=== PATIENT | female | born 1960 | race Hispanic/Latino ===

== ENCOUNTER 2017-01-23 11:52 | Observation (INO) | payer BC ==
[2017-01-23] MEDS ORDERED: Sodium Chloride 0.9% 1,000 ML IV STA (12:08)
[2017-01-23 12:41] LABS: BASO # 0.1 K/uL (0.0-0.2); BASO % 0.7 % (0.0-2.0); EOS # 0.1 K/uL (0.0-0.7); EOS % 0.8 % (0.0-4.0); HEMATOCRIT 48.7 % (34.0-47.0); LYMPH # 1.3 K/uL (1.0-4.3); LYMPH % 9.2 % (20.0-40.0); MEAN CELL VOLUME 94.1 fl (81.0-99.0); MEAN CORPUSCULAR HEMOGLOBIN 32.5 pg (27.0-31.0); MEAN CORPUSCULAR HGB CONC 34.5 g/dL (33.0-37.0); MEAN PLATELET VOLUME 8.6 fl (7.2-11.7); MONO # 1.3 K/uL (0.0-0.8); MONO % 8.8 % (0.0-10.0); NEUT # 11.4 K/uL (1.8-7.0); NEUT % 80.5 % (50.0-75.0); NRBC % 0.7 % (0.0-0.0); PLATELET COUNT 303 K/uL (130-400); RED CELL DISTRIBUTION WIDTH 13.9 % (11.5-14.5); WHITE BLOOD COUNT 14.2 K/uL (4.8-10.8)
[2017-01-23 12:48] LABS: RBC URINE 7 /hpf (0-3); URINE BACTERIA RARE (<OCC); URINE BILIRUBIN NEGATIVE (NEGATIVE); URINE BLOOD SMALL (NEGATIVE); URINE COLOR YELLOW (YELLOW); URINE GLUCOSE (UA) NEG (Normal); URINE KETONE 20 mg/dL (NEGATIVE); URINE LEUKOCYTE ESTERASE NEG Leu/uL (Negative); URINE PROTEIN 30 mg/dL (NEGATIVE); URINE UROBILINOGEN 0.2-1.0 mg/dL (0.2-1.0); WBC URINE 5 /hpf (0-5)
[2017-01-23 12:54] LABS: ALB/GLOB RATIO 1.6 (1.0-2.1); ALKALINE PHOSPHATASE 87 U/L (38-126); ALT/SGPT 36 U/L (9-52); AST/SGOT 25 U/L (14-36); BILIRUBIN,TOTAL 0.9 mg/dl (0.2-1.3); BLOOD UREA NITROGEN 22 mg/dl (7-17); CALCIUM 10.1 mg/dL (8.4-10.2); CARBON DIOXIDE 25 mmol/L (22-30); CHLORIDE 99 mmol/L (98-107); GFR AFRICAN-AMERICAN > 60; GLUCOSE,RANDOM 123 mg/dL (65-105); LIPASE 139 U/L (23-300); POTASSIUM 3.6 MMOL/L (3.6-5.0); SODIUM 137 mmol/l (132-148); TOTAL PROTEIN 7.7 G/DL (6.3-8.2)
[2017-01-23 13:44] LABS: EOSINOPHIL 1 % (0-7); NEUTROPHIL 77 % (42-75); REACTIVE LYMPHOCYTES 1 % (0-0); TOTAL CELLS COUNTED 100
[2017-01-23] MEDS ORDERED: Iohexol 240 (50 ml) PO ONE (13:59)
[2017-01-23] MEDS ORDERED: Iohexol 240 (50 ml) ONE (14:11)
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
[2017-01-23 15:09] LABS: VENOUS BLOOD GAS BASE EXCESS 3.9 mmol/L (0.0-2.0); VENOUS BLOOD GAS PCO2 38 mmHg (40-60); VENOUS BLOOD PH 7.47 (7.32-7.43)
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
[2017-01-23] MEDS ORDERED: Sodium Chloride 0.9% 50 ML IV ONE (16:43)
[2017-01-23] MEDS ORDERED: Iohexol 300 100 ML IJ ONE (16:43)
[2017-01-23] MEDS: Sodium Chloride 0.9% 1,000 ML IV SCH (17:04)
--- NOTE | 2017-01-23 17:25 | CT ---
PROCEDURE: CT Abdomen and Pelvis with contrast HISTORY: upper abd pain, hx past MALT lyphoma COMPARISON: None. TECHNIQUE: Contrast dose: 100 cc of Omnipaque 300 year over Radiation dose: Total exam DLP = 446 mGy-cm. This CT exam was performed using one or more of the following dose reduction techniques: Automated exposure control, adjustment of the mA and/or kV according to patient size, and/or use of iterative reconstruction technique. FINDINGS: LOWER THORAX: Unremarkable. LIVER: Nonspecific 1 centimeter left hepatic hypodensity.. No gross lesion or ductal dilatation. GALLBLADDER AND BILE DUCTS: Solitary gallstone. No wall thickening or pericholecystic fluid. One is PANCREAS: Unremarkable. No gross lesion or ductal dilatation. SPLEEN: Unremarkable. ADRENALS: Unremarkable. No mass. KIDNEYS AND URETERS: Unremarkable. No hydronephrosis. No solid mass. VASCULATURE: Unremarkable. No aortic aneurysm. BOWEL: Mild sigmoid colon diverticulosis. No obstruction. No gross mural thickening. APPENDIX: Normal appendix. PERITONEUM: Unremarkable. No free fluid. No free air. LYMPH NODES: Unremarkable. No enlarged lymph nodes. BLADDER: Unremarkable. REPRODUCTIVE: Unremarkable. BONES: No acute fracture. OTHER FINDINGS: None. IMPRESSION: Gallstones. Colonic diverticulosis.
[2017-01-23] MEDS: HYDROmorphone 0.5 mg/0.5 ml ISec IVP PRN (21:09)
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
--- NOTE | 2017-01-23 23:38 | US ---
EXAM: US Abdomen Limited, Right Upper Quadrant CLINICAL HISTORY: 56 years old, female; Pain; Abdominal pain; Epigastric; Additional info: Ruq pain/n/v gallstones TECHNIQUE: Real-time ultrasound of the right upper quadrant with image documentation. COMPARISON: No relevant prior studies available. FINDINGS: Liver: Normal echogenicity. 0.8 x 0.7 x 0.7 cm cyst. No intrahepatic bile duct dilatation. Gallbladder: Gallstones. No wall thickening. No pericholecystic fluid. No sonographic Borges's sign. Common bile duct: No dilatation. No stones. Pancreas: Unremarkable as visualized. Right kidney: Normal echogenicity. No hydronephrosis. IMPRESSION: 1. Cholelithiasis. 2. Incidental/non-acute findings are described above.
[2017-01-23] MEDS: Piperacillin/Tazobact 3.375 GM in Sodium Chloride 0.9% 100 ML IVPB SCH (23:43)
[2017-01-24 01:42] VITALS: RESP 18
[2017-01-24] MEDS: Piperacillin/Tazobact 3.375 GM in Sodium Chloride 0.9% 100 ML IVPB SCH ×2 (04:02→09:00)
[2017-01-24] MEDS: Sodium Chloride 0.9% 1,000 ML IV SCH ×2 (04:02→09:02)
[2017-01-24 07:46] LABS: HEMATOCRIT 39.2 % (34.0-47.0); MEAN CORPUSCULAR HEMOGLOBIN 32.5 pg (27.0-31.0); MEAN CORPUSCULAR HGB CONC 34.2 g/dL (33.0-37.0); RED CELL DISTRIBUTION WIDTH 13.7 % (11.5-14.5); WHITE BLOOD COUNT 6.8 K/uL (4.8-10.8)
[2017-01-24 08:10] LABS: CHLORIDE 105 mmol/L (98-107); POTASSIUM 3.3 MMOL/L (3.6-5.0); SODIUM 135 mmol/l (132-148)
[2017-01-24 08:12] LABS: BILIRUBIN,TOTAL 1.2 mg/dl (0.2-1.3)
[2017-01-24 08:13] LABS: ALB/GLOB RATIO 1.3 (1.0-2.1); ALKALINE PHOSPHATASE 57 U/L (38-126); ALT/SGPT 38 U/L (9-52); AST/SGOT 31 U/L (14-36); BLOOD UREA NITROGEN 15 mg/dl (7-17); CARBON DIOXIDE 28 mmol/L (22-30); GLUCOSE,RANDOM 88 mg/dL (65-105); TOTAL PROTEIN 5.8 G/DL (6.3-8.2)
[2017-01-24 08:14] LABS: CALCIUM 8.7 mg/dL (8.4-10.2)
[2017-01-24] MEDS ORDERED: Potassium CL 10mEq/100ml 100 ML IVPB ONE (08:33)
[2017-01-24 08:57] VITALS: BP 109/70; PULSE 52; TEMP 97.9
[2017-01-24] MEDS ORDERED: Pantoprazole 40 mg EC Tab PO SCH (09:00)
[2017-01-24] MEDS ORDERED: metroNIDAZOLE 500mg/100ml NS 250 MG in Premixed IV 1 EA IVPB SCH (09:00)
[2017-01-24 09:03] LABS: GFR AFRICAN-AMERICAN > 60
[2017-01-24] MEDS: HYDROmorphone 0.5 mg/0.5 ml ISec IVP PRN (09:05)
--- NOTE | 2017-01-24 09:09 | CP.PCM.PN ---
<GerardoRogelio - Last Filed: 01/24/17 09:07> Subjective - Date & Time of Evaluation Date of Evaluation: 01/24/17 Time of Evaluation: 09:07 - Subjective Subjective: Surgery for Dr. Velez Pt s&e w attending. Pt reports N/V. c/o epigastric pain. Denies F/C/D/CP/SOB. + amb. + void. Objective - Vital Signs/Intake and Output Vital Signs (last 24 hours): Temp Pulse Resp BP Pulse Ox 97.9 F 52 L 18 109/70 97 01/24/17 08:57 01/24/17 08:57 01/24/17 08:57 01/24/17 08:57 01/24/17 08:57 - Medications Medications: Current Medications Alprazolam (Xanax) 0.25 mg PO HS [facility] Stop: 01/30/17 22:01 Last Admin: 01/23/17 23:45 Dose: 0.25 mg Famotidine (Pepcid) 20 mg IVP DAILY [facility] Last Admin: 01/24/17 09:02 Dose: 20 mg Hydromorphone HCl (Dilaudid) 0.5 mg IVP Q4 PRN PRN Reason: Pain, moderate (4-7) Stop: 01/25/17 19:24 Last Admin: 01/24/17 09:05 Dose: 0.5 mg Sodium Chloride (Sodium Chloride 0.9%) 1,000 mls @ 125 mls/hr IV .Q8H [facility] Stop: 01/24/17 15:27 Last Admin: 01/24/17 09:02 Dose: Not Given Piperacillin Sod/Tazobactam (Sod 3.375 gm/ Sodium Chloride) 100 mls @ 100 mls/ hr IVPB Q6 [facility] Last Admin: 01/24/17 09:00 Dose: 100 mls/hr Potassium Chloride (Potassium Chloride 10 Meq/100 Ml) 100 mls @ 100 mls/hr IVPB ONCE ONE Stop: 01/24/17 09:32 Metronidazole 250 mg/ (Miscellaneous) 50 mls @ 50 mls/hr IVPB Q8 [facility] Ondansetron HCl (Zofran Inj) 4 mg IVP Q4 PRN PRN Reason: Nausea/Vomiting Last Admin: 01/24/17 06:11 Dose: 4 mg Pantoprazole Sodium (Protonix Inj) 40 mg IVP DAILY [facility] Last Admin: 01/24/17 08:55 Dose: 40 mg - Labs Labs: 01/24/17 06:00 01/24/17 06:00 - Constitutional Appears: No Acute Distress - Head Exam Head Exam: ATRAUMATIC, NORMAL INSPECTION, NORMOCEPHALIC - Eye Exam Eye Exam: EOMI, Normal appearance, PERRL Pupil Exam: NORMAL ACCOMODATION, PERRL - ENT Exam ENT Exam: Mucous Membranes Moist, Normal Exam - Neck Exam Neck Exam: Full ROM, Normal Inspection. absent: Lymphadenopathy - Respiratory Exam Respiratory Exam: Clear to Ausculation Bilateral, NORMAL BREATHING PATTERN - Cardiovascular Exam Cardiovascular Exam: REGULAR RHYTHM, +S1, +S2. absent: Murmur - GI/Abdominal Exam GI & Abdominal Exam: Soft, Tenderness, Normal Bowel Sounds Additional comments: Epigastric TTP. diffuse abd TTP. - Exam Exam: NORMAL INSPECTION - Extremities Exam Extremities Exam: Full ROM, Normal Capillary Refill, Normal Inspection. absent : Joint Swelling, Pedal Edema - Back Exam Back Exam: NORMAL INSPECTION - Neurological Exam Neurological Exam: Alert, Awake, CN II-XII Intact, Normal Gait, Oriented x3 - Psychiatric Exam Psychiatric exam: Normal Affect, Normal Mood - Skin Skin Exam: Dry, Intact, Normal Color, Warm. absent: Diaphoretic, Erythema Assessment and Plan - Assessment and Plan (Free Text) Assessment: 56yo F with cholelithiasis, N/V, epigastric abd pain. - Likely secondary to GERD - CT - Cholelithiasis, no peirchole fluid. Sigmoid diverticulosis - Abd US- Cholelithiasis, no pericholecystic fluid, no GB wall thickening - Leukocytosis resolved. - VSS - Recommend GI evaluation. Patient may benefit from elective EGD - Continue IVF - PPI, Pepcid - Zofran prn - IV ABX - Pain management - f/u AM labs - Optimization of medical/psych complaints DW Dr. Velez <Dallin Velez - Last Filed: 01/24/17 19:48> Objective - Vital Signs/Intake and Output Vital Signs (last 24 hours): Temp Pulse Resp BP Pulse Ox 97.9 F 52 L 18 109/70 97 01/24/17 08:57 01/24/17 08:57 01/24/17 08:57 01/24/17 08:57 01/24/17 08:57 - Labs Labs: 01/24/17 06:00 01/24/17 06:00 Attending/Attestation - Attestation I have personally seen and examined this patient.: Yes I have fully participated in the care of the patient.: Yes I have reviewed all pertinent clinical information, including history, physical exam and plan: Yes Notes (Text): 01/24/17 19:48 Pt was seen and examined at bedside on 01/24/17 Agree with above note and assessment. Pt with Cholelithiasis and Enteritis No clinical evidence of Cholecystitis C.w current mx GI consult for EGD Plan d.w pt in detail Risk and benefit explained in detail.
--- NOTE | 2017-01-24 10:18 | CARD ---
APPROVED REPORT EKG Measurement Heart [id number] <Conclusion> Sinus tachycardia Possible Left atrial enlargement Nonspecific T wave abnormality Abnormal ECG
--- NOTE | 2017-01-24 15:17 | CP.PCM.CON ---
History of Present Illness - History of Present Illness History of Present Illness: Patient admitted for abdominal pain. She left AMA before I arrived to see her. Past Patient History - Past Medical History & Family History Past Family History: Reviewed and not pertinent - Past Social History Smoking Status: Light Smoker < 10 Cigarettes Daily - CARDIAC Hx Hypertension: Yes - PULMONARY Hx Respiratory Disorders: No - NEUROLOGICAL Hx Neurological Disorder: Yes - HEENT Hx HEENT Problems: Yes - RENAL Hx Chronic Kidney Disease: No - ENDOCRINE/METABOLIC Hx Endocrine Disorders: No - HEMATOLOGICAL/ONCOLOGICAL Hx Blood Disorders: Yes - INTEGUMENTARY Hx Dermatological Problems: No - MUSCULOSKELETAL/RHEUMATOLOGICAL Hx Falls: No - GASTROINTESTINAL Hx Gastrointestinal Disorders: No - GENITOURINARY/GYNECOLOGICAL Hx Genitourinary Disorders: No - PSYCHIATRIC Hx Substance Use: Yes (smokes marijuana occasionally) - SURGICAL HISTORY Hx Surgeries: No - ANESTHESIA Hx Anesthesia: No Meds Allergies/Adverse Reactions: Allergies Allergy/AdvReac Type Severity Reaction Status Date / Time No Known Allergies Allergy Verified 01/23/17 11:57 Results - Vital Signs Recent Vital Signs: Last Vital Signs Temp 97.9 F 01/24/17 08:57 Pulse 52 L 01/24/17 08:57 Resp 18 01/24/17 08:57 BP 109/70 01/24/17 08:57 Pulse Ox 97 01/24/17 08:57 - Labs Result Diagrams: 01/24/17 06:00 01/24/17 06:00 Labs: Laboratory Results - last 24 hr 01/24/17 01/24/17 06:00 06:00 WBC 6.8 D RBC 4.13 Hgb 13.4 D Hct 39.2 MCV 95.0 MCH 32.5 H MCHC 34.2 RDW 13.7 Plt Count 210 Sodium 135 Potassium 3.3 L Chloride 105 Carbon Dioxide 28 Anion Gap 5 L BUN 15 Creatinine 0.8 Est GFR ( Amer) > 60 Est GFR (Non-Af Amer) > 60 Random Glucose 88 Calcium 8.7 Total Bilirubin 1.2 AST 31 ALT 38 Alkaline Phosphatase 57 Total Protein 5.8 L Albumin 3.2 L D Globulin 2.5 Albumin/Globulin Ratio 1.3 Assessment & Plan (1) Abdominal pain Assessment and Plan: Patient left AMA before I could evaluate her. Status: Acute
--- NOTE | 2017-01-24 17:17 | CP.PCM.PN ---
Subjective - Date & Time of Evaluation Date of Evaluation: 01/24/17 Time of Evaluation: 07:35 - Subjective Subjective: At 7:35 am, pt was seen and evaluated, lying in bed comfortably. Stated that medications were helping with her nausea/vomiting, symptoms had improved overnight. Still experiencing epigastric pain, stated that she was told by surgery consult that she may need to see GI. Stated that she was hungry, wanted to try eating before being discharged, stated that she did not want to stay one more night. At time of the exam, pt denied chills, chest pain, sob, leg/calf pain/swelling. Around 1:30 pm, inpt team was paged that pt was agitated, was seen yelling and using curse words at the nursing staff, asking for Xanax for anxiety. When approached asking the pt what happened regarding the situation, pt became very defensive, denied that she asked for the medication by name, and stated that she was frustrated that her neighbor in the room had visitors all day. Patient became confrontational, stated she doesn't feel comfortable anymore when she is "being accused" of being agitated/yelling/cursing, stated she wants to leave. Stated that she was hungry, that she was not being fed (although she tolerated clear liquid well and it was explained that her diet would be advanced slowly due to 5 day hx of nausea/vomiting). It was explained to pt that she was waiting for GI to see her, that seeing the GI dr and GI recommendations may help alleviate her discomfort, but pt maintained her position. AMA form was provided, benefits of staying and risks of leaving were explained to patient, patient verbalized understanding and signed the form. Objective - Vital Signs/Intake and Output Vital Signs (last 24 hours): Temp Pulse Resp BP Pulse Ox 97.9 F 52 L 18 109/70 97 01/24/17 08:57 01/24/17 08:57 01/24/17 08:57 01/24/17 08:57 01/24/17 08:57 - Labs Labs: 01/24/17 06:00 01/24/17 06:00 - Constitutional Appears: Non-toxic - Head Exam Head Exam: ATRAUMATIC, NORMAL INSPECTION - Eye Exam Eye Exam: EOMI, Normal appearance - ENT Exam ENT Exam: Mucous Membranes Moist - Neck Exam Neck Exam: Normal Inspection - Respiratory Exam Respiratory Exam: Clear to Ausculation Bilateral, NORMAL BREATHING PATTERN - Cardiovascular Exam Cardiovascular Exam: REGULAR RHYTHM, +S1, +S2 - GI/Abdominal Exam GI & Abdominal Exam: Soft, Normal Bowel Sounds Additional comments: epigastric pain to palpation - Extremities Exam Extremities Exam: Normal Capillary Refill, Normal Inspection. absent: Calf Tenderness, Pedal Edema, Tenderness - Back Exam Back Exam: NORMAL INSPECTION - Neurological Exam Neurological Exam: Alert, Awake, Oriented x3 - Psychiatric Exam Psychiatric exam: Anxious - Skin Skin Exam: Dry, Intact, Normal Color, Warm Assessment and Plan - Assessment and Plan (Free Text) Plan: Around 1:30 pm, inpt team was paged that pt was agitated, was seen yelling and using curse words at the nursing staff, asking for Xanax for anxiety. When approached asking the pt what happened regarding the situation, pt became very defensive, denied that she asked for the medication by name, and stated that she was frustrated that her neighbor in the room had visitors all day. Patient became confrontational, stated she doesn't feel comfortable anymore when she is "being accused" of being agitated/yelling/cursing, stated she wants to leave. Stated that she was hungry, that she was not being fed (although she tolerated clear liquid well and it was explained that her diet would be advanced slowly due to 5 day hx of nausea/vomiting). It was explained to pt that she was waiting for GI to see her, that seeing the GI dr and GI recommendations may help alleviate her discomfort, but pt maintained her position. AMA form was provided, benefits of staying and risks of leaving were explained to patient, patient verbalized understanding and signed the form. Plan for pt prior to pt signing out AMA 1) Vomiting/Epigastric Pain -diet was advanced to clears, patient was observed tolerating it well -h.pylori testing -surgery consult -suggested GI consult -GI consult placed -NS @ 125 ml/hr -zofran 4mg ivp prn -pepcid 20mg ivp -CT abdomen/pelvis- gallstones, no wall thickening. colonic diverticulosis. -abd u/s - gallstones, (-) sonographic erazo's sign 2)Anxiety -continue home meds alprazolam, paroxetine as scheduled 3) DVT prophylaxis -SCD
[2017-01-25 14:53] VITALS: O2SAT 98
== END 2017-01-24 14:02 | disposition left against medical advice (07) ==
LOC: H.ER 11:52 → H.ERHOLD 14:00 → H.MEDSURG1 18:23
PROVIDERS: ADMIT Family Medicine Geriatric Medicine; ATTEND Family Medicine Geriatric Medicine
DX: K80.20 Calculus of gallbladder without cholecystitis without obstruction (principal); K52.9 Noninfective gastroenteritis and colitis, unspecified; K57.30 Diverticulosis of large intestine without perforation or abscess without bleeding; E86.0 Dehydration; F12.90 Cannabis use, unspecified, uncomplicated; K21.9 Gastro-esophageal reflux disease without esophagitis; F17.210 Nicotine dependence, cigarettes, uncomplicated; I10 Essential (primary) hypertension; F41.9 Anxiety disorder, unspecified; Z85.72 Personal history of non-Hodgkin lymphomas; Z87.820 Personal history of traumatic brain injury
CPT/HCPCS: 36415; 74177; 76705; 80053; 81003; 82803; 83690; 84484; 85025; 85027; 93005; 96365; 96366; 96375; 96376; 99285; C9113; G0378; J1170; J2405; J2543; J3480; J7040; Q9966; Q9967

== ENCOUNTER 2018-09-07 06:20 | Day surgery (SDC) | payer BC ==
[2018-09-05 14:29] VITALS: BMI 17.4
[2018-09-07 06:40] VITALS: RESP 18
[2018-09-07] MEDS ORDERED: MethylPREDNISolone Depo 40 mg/ml Inj ONE (07:23)
[2018-09-07] MEDS ORDERED: Iohexol 300 10 ML ONE ×2 (07:23→08:24)
[2018-09-07] MEDS ORDERED: Bupivacaine HCl 0.25% PF (30 ml) Inj ONE (07:32)
--- NOTE | 2018-09-07 07:40 | CP.SDSHP ---
Same Day Surgery H & P - History Proposed Procedure: Left sacroiliac joint steroid injection Pre-Op Diagnosis: Left sacroiliitis - Previous Medical/Surgical History Pain: 8.Very Severe - Allergies Allergies: Allergies No Known Allergies Allergy (Verified 01/23/17 11:57) - Physical Exam Vital Signs: Vital Signs 09/07/18 09/07/18 06:38 06:44 Temperature 97.3 F L Pulse Rate 91 H 91 H Respiratory 18 Rate Blood Pressure 123/78 O2 Sat by Pulse 96 Oximetry Neuro: WNL Heart: WNL Lungs: WNL Short Stay Discharge - Short Stay Discharge Admitting Diagnosis/Reason for Visit: M46.1 Disposition: HOME/ ROUTINE
[2018-09-07] MEDS ORDERED: Lactated Ringer's 1,000 ML IV ONE (08:31)
[2018-09-07] MEDS ORDERED: Midazolam 2 MG/2 ML VIAL ONE ×2 (08:33→08:39)
[2018-09-07] MEDS ORDERED: Iohexol 300 10 ML IJ ONE (08:40)
[2018-09-07] MEDS ORDERED: MethylPREDNISolone Depo 40 mg/ml Inj IM ONE (08:40)
[2018-09-07] MEDS ORDERED: Bupivacaine 0.5% Inj(30mL) IJ ONE (08:40)
[2018-09-07] MEDS ORDERED: HYDROmorphone 0.5 mg/0.5 ml ISec IVP PRN (08:49)
[2018-09-07] MEDS ORDERED: Lactated Ringer's 1,000 ML IV SCH (09:00)
[2018-09-07] MEDS ORDERED: Oxycodone/Acetaminophen 5/325 mg Tab PO STA (10:34)
[2018-09-07] MEDS ORDERED: Oxycodone/Acetaminophen 5/325 mg Tab PO ONE (10:40)
[2018-09-07 11:41] VITALS: BP 125/76; PULSE 60; TEMP 97.4; O2SAT 98
--- NOTE | 2018-09-07 13:35 | RAD ---
Date of service: 09/07/2018 PROCEDURE: Intraoperative Fluoroscopy. HISTORY: C ARM FINDINGS: Fluoroscopic assistance was provided. Fluoroscopy time = 11.2 sec. Radiation dose = 1.30 mGy. Please refer to the operative report from TAQUERIA Zavala.
--- NOTE | 2018-09-07 18:28 | OP ---
PROCEDURE DATE: 09/07/2018 PREOPERATIVE DIAGNOSIS: Left sacroiliitis. POSTOPERATIVE DIAGNOSIS: Left sacroiliitis. PROCEDURE: Left sacroiliac joint steroid injection. ANESTHESIOLOGIST: Shamar Tucker MD SURGEON: Stephon Simon MD ANESTHESIA TYPE: Monitored anesthesia care. COMPLICATIONS: None. SPECIMEN: None. DESCRIPTION OF PROCEDURE: Procedure is as follows. After we had a discussion of the procedure with the patient including its risks, benefits, alternatives, outcome data, possibility of no effect or increased pain, the patient consented to the procedure. She denied any recent infection, bleeding tendencies, or being on anticoagulants. A decision was then made to proceed to the OR. The patient was placed on the fluoroscopy table in a prone position with two pillows underneath her abdomen. The back was prepped and draped in the usual sterile fashion, and a sterile technique was adhered to during the entire procedure. The left sacroiliac joint was first visualized on the anteroposterior view. The posterior opening was differentiated from the anterior opening by turning the fluoroscopy oblique in ipsilateral direction. The skin overlying the target area was then infiltrated with 1% lidocaine using a 25-gauge needle. Subsequently, a 22-gauge 3.5-inch spinal needle was incrementally advanced under fluoroscopic guidance until tip of the needle walked into the joint capsule. This was confirmed by injecting approximately 0.5 mL of Isovue contrast which was seen spread up the sacroiliac joint. At this point, approximately 3 mL of 0.5% Marcaine and Depo-Medrol mixture was injected. The needle was then pulled back and redirected on to the medial border of the sacroiliac joint. Approximately 7 mL of the mixture was then deposited along the medial border of the left sacroiliac joint. At the end of the procedure, the patient's back was cleaned, and a dry bandage was applied. The patient was then transferred to the recovery area in good condition without any signs of [employer] toxicity or any neurological deficit. She will be followed in the office in approximately two to four weeks. Devin Simon MD
== END 2018-09-07 11:55 | disposition home or self-care (01) ==
LOC: H.OPSURG 06:20
PROVIDERS: ATTEND Anesthesiology
DX: M46.1 Sacroiliitis, not elsewhere classified (principal)
CPT/HCPCS: G0260; J1030; J2250; J3010; J7120; Q9967